=== PATIENT | female | born 1975 | race Caucasian/White ===

== ENCOUNTER 2016-11-01 18:32 | Emergency (ER) | payer OTHER | END 2016-11-02 00:48 | disposition home or self-care (01) | LOC: ER1 18:32 | DX: R51 Headache (principal); M54.5 Low back pain | CPT/HCPCS: 36415; 70450; 72131; 81001; 82550; 83874; 84703; 87086; 96374; 96375; 99284; J2270; J2405; J7030 ==

== ENCOUNTER → 2017-04-04 | Outpatient (CLI) | payer OTHER | LOC: KOH-I 13:58 | DX: M25.511 Pain in right shoulder (principal); R93.7 Abnormal findings on diagnostic imaging of other parts of musculoskeletal system; M75.52 Bursitis of left shoulder | CPT/HCPCS: 73221 ==

== ENCOUNTER 2020-09-28 16:31 | Emergency (ER) | payer OTHER ==
[~2020-09-28 16:31] MED LIST: ESTROVEN MAX400 MCG PO; IBUPROFEN600 MG PO; NORCO 5-325 TA1 EACH PO
[2020-09-28] MEDS ORDERED: BACTROBAN OINT22 GM EXT (18:51)
[2020-09-28] MEDS ORDERED: BACTRIM DS TAB1 EACH PO (18:51)
== END 2020-09-28 19:05 | disposition home or self-care (01) ==
LOC: ER1 16:31
DX: L72.9 Follicular cyst of the skin and subcutaneous tissue, unspecified (principal); F17.210 Nicotine dependence, cigarettes, uncomplicated; Z90.49 Acquired absence of other specified parts of digestive tract
CPT/HCPCS: 99282

== ENCOUNTER → 2021-09-12 | Outpatient (CLI) | payer OTHER ==
[~2021-09-12] MED LIST changes: +BACTRIM DS TAB1 EACH PO; +BACTROBAN OINT22 GM EXT
[2021-09-12 13:17] LABS: HEMOGLOBIN 11.5 gm/dl (12.3-15.3); RED BLOOD COUNT 5.01 M/UL (4.00-5.10); WHITE BLOOD COUNT 7.6 K/UL (4.5-11.0)
[2021-09-12 13:37] LABS: BUN/CREATININE RATIO 17 (0-10)
[2021-09-13 09:16] LABS: VITAMIN D, 25-HYDROXY 20.4 ng/mL (30.0-100.0)
[2021-09-13 11:16] LABS: HBSAG SCREEN Negative (Negative); HEP A AB, IGM Negative (Negative); HEP B CORE AB, IGM Negative (Negative); HEP C VIRUS AB <0.1 (0.0-0.9)
== END ==
LOC: US 11:30
PROVIDERS: Nurse Practitioner Primary Care
DX: R19.07 Generalized intra-abdominal and pelvic swelling, mass and lump (principal); R23.8 Other skin changes; R53.83 Other fatigue; E55.9 Vitamin D deficiency, unspecified
CPT/HCPCS: 36415; 74018; 76700; 80053; 80061; 80074; 82150; 82607; 82728; 82746; 83540; 83550; 83615; 83690; 84439; 84443; 85025; 85045; 85049; 85610; 85652; 85670; 85730; 86140

== ENCOUNTER → 2021-12-26 | Outpatient (CLI) | payer OTHER | LOC: NM 07:57 | DX: L03.211 Cellulitis of face (principal) | CPT/HCPCS: 78315; A9503 ==

== ENCOUNTER → 2022-01-04 | Outpatient (CLI) | payer OTHER ==
[2022-01-04 13:22] LABS: HEMOGLOBIN 12.6 gm/dl (12.3-15.3); RED BLOOD COUNT 5.15 M/UL (4.00-5.10); WHITE BLOOD COUNT 5.8 K/UL (4.5-11.0)
[2022-01-04 14:07] LABS: BUN/CREATININE RATIO 23 (0-10); GAMMA GLUTAMYL TRANSPEPTIDASE 15 U/L (7-64)
== END ==
LOC: LAB 12:54
PROVIDERS: Nurse Practitioner Primary Care
DX: D50.9 Iron deficiency anemia, unspecified (principal); R74.8 Abnormal levels of other serum enzymes; D51.9 Vitamin B12 deficiency anemia, unspecified
CPT/HCPCS: 36415; 80053; 82330; 82607; 82728; 82746; 82977; 83540; 83550; 83970; 84100; 84439; 84443; 85025